=== PATIENT | female | born 1940 | race Caucasian/White ===

== ENCOUNTER 2017-05-27 15:59 | Emergency (ER) | payer MEDICARE ==
[~2017-05-27] VITALS: Ht 170.2 cm; Wt 75.0 kg
[~2017-05-27 15:59] MED LIST: ESTR1 PO; LEVO125T48 PO; LISI-586 PO; LORTA5 PO; ONDAN4 PO; OXYB5TAB33 PO; SIMV20 PO
[2017-05-27 16:02] VITALS: BP 90/55; PULSE 61; RESP 20; TEMP 97.5; O2SAT 100
[2017-05-27] MEDS ORDERED: SODIUM CHLOR 0.9% 1000 ML INJ 1,000 ML IV ONE (16:15)
[2017-05-27] MEDS ORDERED: SODIUM CHLORIDE 0.9% FLUSH 10 ML FLUSH IVF PRN (16:15)
--- NOTE | 2017-05-27 16:15 | PD ---
HPI Chief Complaint: Syncope/Near-Syncope Time Seen by Provider: 16:08 Travel History International Travel<30 days: No Contact w/Intl Traveler<30days: No Traveled to known affect area: No History of Present Illness HPI 76-year-old female with history of hypertension and hypothyroidism, presents emergency department for evaluation following a syncopal episode. Patient states that she needed blood today. She states that she "does this all the time." She did not wait after she donated. She did not have anything to eat or drink afterwards. She ate some strawberries for breakfast prior to going to donate. She states after she donated she felt normal as she always does. She went to get into her car. She began to feel kind of weak and tingly and lightheaded. She thought she might be okay and attempts to drive but then the feeling only got worse. She parked her car and the next thing she knew people were trying to get in her car. Bystanders has seen her slumped over in her car. The patient had passed out. Currently she tells me that she feels a little woozy and weak. She denies any pain. Denies a chest or tightness. No difficulty breathing. No headache. No focal deficits or weakness. She has no other symptoms to report. [facility] Past Medical History Hypertension: Yes Thyroid Disease: Yes Social History Alcohol Use: Yes Tobacco Use: No Substance Use: No Allergies-Medications (Allergen,Severity, Reaction): Coded Allergies: No Known Allergies (Unverified , 05/27/17) Review of Systems Except as stated in HPI: all other systems reviewed are Neg Physical Exam Narrative GENERAL: Well-nourished female patient, in no acute distress. SKIN: Focused skin assessment warm/dry. HEAD: Atraumatic. Normocephalic. EYES: Pupils equal and round. No scleral icterus. No injection or drainage. ENT: No nasal bleeding or discharge. Mucous membranes pink and moist. NECK: Trachea midline. No JVD. CARDIOVASCULAR: Regular rate and rhythm. No murmur appreciated. RESPIRATORY: No accessory muscle use. Clear to auscultation. Breath sounds equal bilaterally. GASTROINTESTINAL: Abdomen soft, non-tender, nondistended. Hepatic and splenic margins not palpable. MUSCULOSKELETAL: No obvious deformities. No clubbing. No cyanosis. No edema. NEUROLOGICAL: Awake and alert. No obvious cranial nerve deficits. Motor grossly within normal limits. Normal speech. PSYCHIATRIC: Appropriate mood and affect; insight and judgment normal. Data Data Last Documented VS Vital Signs Date Time Temp Pulse Resp B/P (MAP) Pulse Ox O2 Delivery O2 Flow Rate FiO2 05/27/17 18:02 05/27/17 17:09 60 18 60 18 75 20 05/27/17 16:18 99 Room Air 05/27/17 16:02 97.5 Orders Orders Electrocardiogram (05/27/17 16:15) Basic Metabolic Panel (Bmp) (05/27/17 16:15) Complete Blood Count With Diff (05/27/17 16:15) Ecg Monitoring (05/27/17 16:15) Iv Access Insert/Monitor (05/27/17 16:15) Oximetry (05/27/17 16:15) Sodium Chloride 0.9% Flush (Ns Flush) (05/27/17 16:15) Sodium Chlor 0.9% 1000 Ml Inj (Ns 1000 M (05/27/17 16:15) Orthostatic Vital Signs (05/27/17 16:34) Ed Discharge Order (05/27/17 17:23) Labs Laboratory Tests Test 05/27/17 16:22 White Blood Count 12.1 TH/MM3 Red Blood Count 4.22 MIL/MM3 Hemoglobin 12.9 GM/DL Hematocrit 39.0 % Mean Corpuscular Volume 92.5 FL Mean Corpuscular Hemoglobin 30.6 PG Mean Corpuscular Hemoglobin Concent 33.1 % Red Cell Distribution Width 13.6 % Platelet Count 208 TH/MM3 Mean Platelet Volume 9.9 FL Neutrophils (%) (Auto) 81.3 % Lymphocytes (%) (Auto) 11.5 % Monocytes (%) (Auto) 5.6 % Eosinophils (%) (Auto) 1.1 % Basophils (%) (Auto) 0.5 % Neutrophils # (Auto) 9.8 TH/MM3 Lymphocytes # (Auto) 1.4 TH/MM3 Monocytes # (Auto) 0.7 TH/MM3 Eosinophils # (Auto) 0.1 TH/MM3 Basophils # (Auto) 0.1 TH/MM3 CBC Comment DIFF FINAL Differential Comment Blood Urea Nitrogen 26 MG/DL Creatinine 0.82 MG/DL Random Glucose 137 MG/DL Calcium Level 8.5 MG/DL Sodium Level 140 MEQ/L Potassium Level 3.7 MEQ/L Chloride Level 105 MEQ/L Carbon Dioxide Level 28.5 MEQ/L Anion Gap 7 MEQ/L Estimat Glomerular Filtration Rate 68 ML/MIN [facility] Medical Decision Making Medical Screen Exam Complete: Yes Emergency Medical Condition: Yes Medical Record Reviewed: Yes Differential Diagnosis Syncope versus near-syncope versus hypovolemia versus dehydration versus electrolyte abnormality Narrative Course 76-year-old female presents to emergency department following a syncopal episode. Patient had just donated blood and left without resting or eating anything following it. She also had a very light breakfast. Currently she appears well. She states she feels a little weak. Patient will be given IV normal saline fluid bolus and lab work will be checked for any contributing abnormality. EKG is complete and reviewed by my attending physician. Laboratory Tests Test 05/27/17 16:22 White Blood Count 12.1 TH/MM3 Red Blood Count 4.22 MIL/MM3 Hemoglobin 12.9 GM/DL Hematocrit 39.0 % Mean Corpuscular Volume 92.5 FL Mean Corpuscular Hemoglobin 30.6 PG Mean Corpuscular Hemoglobin Concent 33.1 % Red Cell Distribution Width 13.6 % Platelet Count 208 TH/MM3 Mean Platelet Volume 9.9 FL Neutrophils (%) (Auto) 81.3 % Lymphocytes (%) (Auto) 11.5 % Monocytes (%) (Auto) 5.6 % Eosinophils (%) (Auto) 1.1 % Basophils (%) (Auto) 0.5 % Neutrophils # (Auto) 9.8 TH/MM3 Lymphocytes # (Auto) 1.4 TH/MM3 Monocytes # (Auto) 0.7 TH/MM3 Eosinophils # (Auto) 0.1 TH/MM3 Basophils # (Auto) 0.1 TH/MM3 CBC Comment DIFF FINAL Differential Comment Blood Urea Nitrogen 26 MG/DL Creatinine 0.82 MG/DL Random Glucose 137 MG/DL Calcium Level 8.5 MG/DL Sodium Level 140 MEQ/L Potassium Level 3.7 MEQ/L Chloride Level 105 MEQ/L Carbon Dioxide Level 28.5 MEQ/L Anion Gap 7 MEQ/L Estimat Glomerular Filtration Rate 68 ML/MIN Upon reassessment, patient states she feels much better. She tells me she is ready to go home. I discussed this with my attending who is also assess the patient. Patient will be discharged home at this time. Diagnosis Primary Impression: Syncope Qualified Codes: R55 - Syncope and collapse Referrals: Primary Care Physician Patient Instructions: General Instructions, Syncope (ED) Additional Instructions: Rest Maintain adequate oral hydration Follow-up the primary care provider Return immediately with any acute worsening symptoms Med/Other Pt SpecificInfo: No Change to Meds Disposition: 01 DISCHARGE HOME Condition: Stable Naomi Rich May 27, 2017 16:14
[2017-05-27 16:18] VITALS: BP 112/57; PULSE 64; RESP 18; O2SAT 99
--- NOTE | 2017-05-27 16:29 | PD ---
Data Data Last Documented VS Vital Signs Date Time Temp Pulse Resp B/P (MAP) Pulse Ox O2 Delivery O2 Flow Rate FiO2 05/27/17 16:18 64 18 112/57 (75) 99 Room Air 05/27/17 16:02 97.5 Orders Orders Electrocardiogram (05/27/17 16:15) Basic Metabolic Panel (Bmp) (05/27/17 16:15) Complete Blood Count With Diff (05/27/17 16:15) Ecg Monitoring (05/27/17 16:15) Iv Access Insert/Monitor (05/27/17 16:15) Oximetry (05/27/17 16:15) Sodium Chloride 0.9% Flush (Ns Flush) (05/27/17 16:15) Sodium Chlor 0.9% 1000 Ml Inj (Ns 1000 M (05/27/17 16:15) MDM Supervised Visit with KATERYNA: Yes Narrative Course The history, exam, and medical decision-making in the associated mid-level provider note were completed with my assistance. I reviewed and agree with the findings presented. I attest that I had a [id number] encounter with the patient on the same day, and personally performed and documented my assessment and findings in the medical record. *My assessment and Findings: 76-year-old woman, lightheaded dizzy and syncopal after giving blood. Looks well. Improved. Will check labs EKG IV fluids, likely discharge. Dion Santoro MD May 27, 2017 16:29
[2017-05-27 16:45] LABS: AUTOMATED NEUTROPHIL # 9.8 TH/MM3 (1.8-7.7); BASOPHIL # 0.1 TH/MM3 (0-0.2); BASOPHIL % 0.5 % (0.0-2.0); EOSINOPHIL # 0.1 TH/MM3 (0-0.4); EOSINOPHIL % 1.1 % (0.0-4.0); HEMOGLOBIN 12.9 GM/DL (11.6-15.3); LYMPH % 11.5 % (9.0-44.0); LYMPHOCYTE # 1.4 TH/MM3 (1.0-4.8); MEAN CELL VOLUME 92.5 FL (80.0-100.0); MEAN CORPUSCULAR HEMOGLOBIN 30.6 PG (27.0-34.0); MEAN CORPUSCULAR HGB CONC 33.1 % (32.0-36.0); MEAN PLATELET VOLUME 9.9 FL (7.0-11.0); MONO % 5.6 % (0.0-8.0); MONOCYTE # 0.7 TH/MM3 (0-0.9); NEUT % 81.3 % (16.0-70.0); PLATELET COUNT 208 TH/MM3 (150-450); RED BLOOD COUNT 4.22 MIL/MM3 (4.00-5.30); RED CELL DISTRIBUTION WIDTH 13.6 % (11.6-17.2); WHITE BLOOD COUNT 12.1 TH/MM3 (4.0-11.0)
[2017-05-27 17:09] VITALS: BP_SYST 102; BP_SYST 98; BP_SYST 99; BP_DIAS 53; BP_DIAS 54; BP_DIAS 55; RESP 18; RESP 20
[2017-05-27 17:10] LABS: BICARBONATE 28.5 MEQ/L (21.0-32.0); CALCIUM 8.5 MG/DL (8.5-10.1); CREATININE 0.82 MG/DL (0.50-1.00)
--- NOTE | 2017-05-28 14:14 | EKG ---
Date Performed: 05/27/2017 Time Performed: 16:36:22 PTAGE: 76 years EKG: SINUS BRADYCARDIA BORDERLINE LEFT AXIS DEVIATION LOW QRS VOLTAGE IN PRECORDIAL LEADS PATTER N CONSISTENT WITH PULMONARY DISEASE PROLONGED QT INTERVAL ABNORMAL ECG NO PREVIOUS TRACING DOCTOR: Rocael Garvin Interpretating Date/Time 05/28/2017 14:13:13
== END 2017-05-27 18:30 | disposition home or self-care (01) ==
LOC: MERGE 15:59 → NEPE 15:59
DX: R55 Syncope and collapse (principal); I10 Essential (primary) hypertension
CPT/HCPCS: 80048; 85025; 93005; 99284; J7030